=== PATIENT | female | born 1990 | race Caucasian/White ===

== ENCOUNTER 2016-08-27 11:44 | Emergency (ER) | payer OTHER ==
[~2016-08-27] VITALS: Ht 160 cm; Wt 56.0 kg
[2016-08-27 11:48] VITALS: Ht 160 cm; Wt 56.0 kg
[2016-08-27] MEDS ORDERED: ONDANSETRON 4 MG INJ IV STA ×2 (12:14→13:31)
[2016-08-27] MEDS ORDERED: SOD CHLORIDE 0.9% 2,000 ML IV STA (12:14)
[2016-08-27] MEDS ORDERED: INSU200I SQ (12:26)
[2016-08-27] MEDS ORDERED: LANT3I SC (12:27)
[2016-08-27] MEDS ORDERED: LORAZEPAM 2 MG INJ IV ONE ×2 (12:30→14:00)
[2016-08-27 12:42] LABS: MODE ROOM AIR; MetHgb Venous 1.3 %; Sample Type Blood venous; Venous COHb 1.1 %; Venous Fraction OxyHgb 20.6 %; Venous Total Hemglobin 15.3 g/dl
[2016-08-27 12:45] LABS: ADD SCAN DIFF NO
--- NOTE | 2016-08-27 12:48 | ERD ---
ER Documentation Chief Complaint Date/Time DATE: 08/27/16 TIME: 12:45 Chief Complaint abd pain with vomiting/diarrhea since last night HPI 26 year female history of insulin-dependent diabetes, polysubstance abuse and recent heroin discontinuation. The patient is exhibiting withdrawal symptoms including nausea vomiting, piloerection, abdominal cramping. She describes the symptoms as moderate to severe. She is also an insulin-dependent diabetic and notes that her blood sugars have been slightly elevated despite compliance. No fevers or chills, the abdominal pain is periumbilical, cramping and nonradiating. No no pain to the right lower quadrant. ROS All systems reviewed and are negative except as per history of present illness. Medications Home Meds Active Scripts Ondansetron (Ondansetron Odt) 4 Mg Tab.rapdis, 4 MG PO Q6H Y for NAUSEA AND/OR VOMITING, #30 TAB Prov:JAMI RAMIREZ MD 08/27/16 Reported Medications Insulin Glargine* (Lantus*) 100 Unit/Ml Soln, 30 UNIT SC QHS, #1 VIAL 08/27/16 Insulin Lispro (Humalog Kwikpen) 200 Unit/1 Ml Insuln.pen, 0 SQ AC MEALS, EA 08/27/16 Allergies Allergies: Coded Allergies: No Known Allergy (Unverified , 08/27/16) FmHx Family History: No diabetes Physical Exam Vitals Vital Signs Date Time Temp Pulse Resp B/P Pulse Ox O2 Delivery O2 Flow Rate FiO2 08/27/16 13:45 98.9 47 20 147/86 100 Room Air 08/27/16 11:48 98.9 68 18 156/80 100 Physical Exam General: Slightly disheveled, dry heaving Head: Normocephalic, atraumatic. Eyes: Pupils equally reactive, EOM intact ENT:dry mucous membranes Neck: Supple, no lymphadenopathy Respiratory: Lungs clear bilaterally, no distress Cardiovascular: RRR, no murmurs, rubs, or gallops Abdominal: Soft, non-tender, non-distended, no peritoneal signs, no tenderness to McBurney's point, no peritonitis : Deferred MSK: No edema, no unilateral swelling, 5/5 strength Neurologic: Alert and oriented, moving all extremities, normal speech, no focal weakness, no cerebellar signs Skin: No rash Psych: Normal mood Result Diagram: 08/27/16 1236 08/27/16 1236 Results 24 hrs Laboratory Tests Test 08/27/16 12:14 08/27/16 12:36 08/27/16 12:52 Blood Gas Specimen Source Blood venous Arterial Blood Date Drawn 08/27/2016 12:34:26 PM Arterial Blood Gas Puncture Site VENOUS LINE Gato Test N/A Venous Blood pH 7.418 Venous Blood pCO2 (Temp Corrected) 39.8mmHG Venous Blood pO2 (Temp Corrected) 14.8mmHG Venous Blood HCO3 25.1mmol/L Venous Blood Oxygen Saturation 21.1mmHG Venous Blood Base Excess 0.7mmol/L Venous Blood Total Hemoglobin 15.3g/dl Venous Blood Oxyhemoglobin 20.6% Venous Blood Methemoglobin 1.3% Carboxyhemoglobin 1.1% Blood Gas Temperature 37.0C Blood Gas Modality ROOM AIR FiO2 21.0% Blood Gas Notified Whom [facility] Blood Gas Notified Time 08/27/2016 12:41:48 PM White Blood Count 10.810^3/ul Red Blood Count 5.3110^6/ul Hemoglobin 15.2g/dl Hematocrit 44.4% Mean Corpuscular Volume 83.6fl Mean Corpuscular Hemoglobin 28.6pg Mean Corpuscular Hemoglobin Concent 34.2g/dl Red Cell Distribution Width 13.0% Platelet Count 86568^3/UL Mean Platelet Volume 10.6fl Neutrophils % 74.1% Lymphocytes % 22.4% Monocytes % 2.5% Eosinophils % 0.2% Basophils % 0.6% Nucleated Red Blood Cells % 0.0/100WBC Neutrophils # 8.010^3/ul Lymphocytes # 2.410^3/ul Monocytes # 0.310^3/ul Eosinophils # 0.010^3/ul Basophils # 0.110^3/ul Nucleated Red Blood Cells # 0.010^3/ul Sodium Level 136mmol/L Potassium Level 4.6mmol/L Chloride Level 96mmol/L Carbon Dioxide Level 26mmol/L Anion Gap 19 Blood Urea Nitrogen 9mg/dl Creatinine 0.70mg/dl Glucose Level 258mg/dl Calcium Level 10.3mg/dl Serum HCG, Qualitative NEGATIVE Bedside Glucose 284mg/dL Current Medications Medications (Trade) Dose Ordered Sig/Bucky Route PRN Reason Start Time Stop Time Status Last Admin Dose Admin Sodium Chloride (NS) 2,000 ml @ 1,000 mls/hr Q2H STAT IV 08/27/16 12:14 08/27/16 14:13 DC 08/27/16 12:38 Lorazepam (Ativan) 1 mg ONCE ONCE IV 08/27/16 12:30 08/27/16 12:31 DC 08/27/16 12:38 Ondansetron HCl (Zofran Inj) 4 mg ONCE STAT IV 08/27/16 12:14 08/27/16 12:16 DC 08/27/16 12:39 Clonidine (Catapres) 0.1 mg ONCE ONCE PO 08/27/16 12:30 08/27/16 12:31 DC 08/27/16 12:39 Lorazepam (Ativan) 1 mg ONCE ONCE IV 08/27/16 14:00 08/27/16 14:01 DC 08/27/16 13:38 Ondansetron HCl (Zofran Inj) 4 mg ONCE STAT IV 08/27/16 13:31 08/27/16 13:33 DC 08/27/16 13:38 Procedures/MDM PROCEDURES: Peripheral IV Insertion: Indication: Difficult IV access Location: Right deep brachial Attempts: A single attempt was made Angiocath-type: 18-gauge The patient was consented prior to procedure and states understanding of risks, benefits, alternatives. Verbal consent was provided Sterile procedure was used to insert a peripheral IV. Indication, location and Angiocath-type are noted above. Ultrasound guidance was used to assist in the insertion of the Angiocath. Return of dark nonpulsatile blood was obtained, normal saline flushed through the Angiocath which was then secured to the skin. The patient tolerated the procedure well without complications. Emergency Bedside Ultrasound: The patient was verbally consented prior to procedure and understands the risks , benefits, and alternatives. The patient is agreeable to procedure and has given verbal consent. Indication: Peripheral IV insertion Probe Type: Linear Findings: Dynamic ultrasound utilized with compression technique with both linear and horizontal views. LAB INTERPRETATION: No significant leukocytosis, no evidence of diabetic ketoacidosis MEDICAL DECISION MAKING: The patient presents with nausea vomiting and abdominal pain that is likely consistent with mild to moderate opiate withdrawal syndrome. The patient has a benign abdominal exam and no fever without signs or symptoms concerning for acute intra-abdominal process such as appendicitis ovarian cyst or torsion or hepatobiliary process. No evidence of bowel obstruction and no abdominal surgical history. The patient does have a history of insulin-dependent diabetes and has had some nausea and vomiting which places her at risk for diabetic ketoacidosis. Initial screening including venous blood gas will be initiated to rule out this process. ER COURSE: The patient was given 2 L of normal saline, Ativan, Zofran, clonidine for opiate withdrawal syndrome. Venous blood gas shows a pH of 7.4 therefore not consistent with diabetic ketoacidosis. The patient was a difficult access and a peripheral IV was inserted by myself. The patient did require repeat dosing of Ativan with now complete resolution of her symptoms she has not vomited for greater than 1 hour and vital signs have stabilized. No evidence of diabetic ketoacidosis. This reason I believe outpatient management is appropriate. She will be discharged with Zofran and is currently in a detox center. They can give her medications. I kept the patient and/or family informed of laboratory and diagnostic imaging results throughout the emergency room course. DISPOSITION PLAN: We discussed follow up with the patient's primary care doctor within 24 to 48 hours as needed. We also discussed return to the emergency room for worsening symptoms or worsening condition. Outpatient referral: [None required] Discharge Medications: Zofran Departure Diagnosis: Primary Impression: Nausea and vomiting Vomiting type: unspecified Vomiting Intractability: non-intractable Qualified Code: R11.2 - Non-intractable vomiting with nausea, unspecified vomiting type Additional Impressions: Opiate withdrawal Hyperglycemia Condition: Stable JAMI RAMIREZ MD Aug 27, 2016 12:48
[2016-08-27 12:50] LABS: BASOPHIL # 0.1 10^3/ul (0.0-0.1); BASOPHILS % 0.6 % (0.0-2.0); EOSINOPHILS % 0.2 % (0.0-7.0); HEMATOCRIT 44.4 % (37.0-47.0); HEMOGLOBIN 15.2 g/dl (12.0-16.0); LYMPHOCYTES # 2.4 10^3/ul (0.8-2.9); LYMPHOCYTES % 22.4 % (15.0-51.0); MEAN CORPUSCULAR HEMOGLOBIN 28.6 pg (29.0-33.0); MEAN CORPUSCULAR HGB CONC 34.2 g/dl (32.0-37.0); MEAN CORPUSCULAR VOLUME 83.6 fl (82.0-101.0); MEAN PLATELET VOLUME 10.6 fl (7.4-10.4); MONOCYTE # 0.3 10^3/ul (0.3-0.9); MONOCYTES % 2.5 % (0.0-11.0); NEUTROPHILS % 74.1 % (39.0-77.0); PLATELET COUNT 315 10^3/UL (140-415); RED BLOOD COUNT 5.31 10^6/ul (4.20-5.40); WHITE BLOOD COUNT 10.8 10^3/ul (4.8-10.8)
[2016-08-27 13:19] LABS: CALCIUM 10.3 mg/dl (8.4-10.2); CREATININE 0.7 mg/dl (0.44-1.00); POTASSIUM 4.6 mmol/L (3.5-5.1)
[2016-08-27] MEDS ORDERED: ONDA4TAB14 PO (14:30)
[2016-08-27] MEDS ORDERED: METOCLOPRAMIDE 10 MG INJ IV ONE (15:00)
[2016-08-27] MEDS ORDERED: ONDANSETRON 4 MG INJ IV PRN ×3 (15:30→17:00)
[2016-08-27] MEDS ORDERED: ACETAMINOPHEN 325 MG TAB PO PRN ×2 (15:30→16:30)
[2016-08-27] MEDS ORDERED: SOD CHLORIDE 0.9% 1,000 ML IV SCH (16:29)
[2016-08-27] MEDS ORDERED: NITROGLYCERIN (SL) 0.4 MG TAB SL PRN (16:30)
[2016-08-27] MEDS ORDERED: MAGNESIUM HYDROXIDE 30ML CUP PO PRN (16:30)
[2016-08-27] MEDS ORDERED: METOCLOPRAMIDE 10 MG INJ IV PRN (16:30)
[2016-08-27] MEDS ORDERED: DOCUSATE SODIUM 100 MG CAP PO PRN (16:30)
[2016-08-27] MEDS ORDERED: NACL 0.9% 3 ML SYG IV SCH (16:30)
[2016-08-27] MEDS ORDERED: TRIMETHOBENZAMIDE 100 MG/ML VIAL IM PRN (16:30)
[2016-08-27] MEDS ORDERED: NA PHOSPHATE/BIPHOS 133 ML ENEMA PR PRN (16:30)
[2016-08-27] MEDS ORDERED: HYDROCODONE/APAP (5/325) TAB PO PRN (16:30)
[2016-08-27] MEDS ORDERED: ALBUTEROL/IPRATROPIUM (NEB) 3 ML AMP HHN PRN (16:30)
[2016-08-27] MEDS ORDERED: morphine 2 MG INJ IV PRN (16:30)
[2016-08-27] MEDS ORDERED: hydrALAzine 20 MG INJ IV PRN (16:30)
[2016-08-27] MEDS ORDERED: LORAZEPAM 2 MG INJ IV PRN (16:30)
[2016-08-27 16:34] VITALS: BP 139/87; PULSE 58; RESP 18; TEMP 98.8
[2016-08-27] MEDS ORDERED: ONDANSETRON INJ 8 MG in SOD CHLORIDE 0.9% 50 ML IV PRN (17:00)
[2016-08-27] MEDS ORDERED: HEPARIN 5,000 UNIT/0.5 ML VIAL SC SCH (21:00)
[2016-08-28] MEDS ORDERED: PANTOPRAZOLE (EC) 40 MG TAB PO SCH (06:00)
== END 2016-08-27 18:40 | disposition home or self-care (01) ==
LOC: E/R 11:44
DX: R11.2 Nausea with vomiting, unspecified (principal); F11.23 Opioid dependence with withdrawal; E11.65 Type 2 diabetes mellitus with hyperglycemia; Z79.4 Long term (current) use of insulin
CPT/HCPCS: 36415; 80048; 82803; 82962; 84703; 85025; 96374; 96375; 96376; 99284; J2060; J2405; J2765; J7030